=== PATIENT | female | born 1970 | race Caucasian/White ===

== ENCOUNTER 2023-02-21 08:23 | Emergency (ER) | payer BC ==
[2023-02-21 08:44] VITALS: BP 140/90; PULSE 80; RESP 16; TEMP 98.8; BMI 23.0
[2023-02-21] MEDS ORDERED: IBUPROFEN 600 MG TABLET (FP) PO ONE ×2 (09:22→09:25)
== END 2023-02-21 10:04 | disposition home or self-care (01) ==
LOC: FER 08:23
DX: M79.672 Pain in left foot (principal); S99.922A Unspecified injury of left foot, initial encounter; X58.XXXA Exposure to other specified factors, initial encounter; Y93.73 Activity, racquet and hand sports
CPT/HCPCS: 73650-TC-LT-FY; 99283-25